=== PATIENT | male | born 1960 | race Caucasian/White ===

== ENCOUNTER 2023-10-24 20:28 | Emergency (ER) | payer OTHER, SELFPAY ==
[2023-10-24 20:31] VITALS: BP 132/90
--- NOTE | 2023-10-24 22:10 | ED.MUSCINJ ---
HPI-Injury
General
Chief Complaint: Musculo-Skeletal Complaint
Source: patient
Exam Limitations: none
Time Seen by Provider: 10/24/23 21:51
Travel History
Have you had any contact with someone who has COVID-19?: No
Do you have any symptoms of coronavirus? Fever > 100 degrees, chills, cough, shortness of breath, sore throat, loss of taste or smell, muscle aches, or headache?: No
History of Present Illness-Injury
Initial Injury comments:
63-year-old male presents complaining of right ankle and left knee pain after he slipped going up the steps. He did not hit his head. He complains of pain and swelling to the lateral right ankle. He has been having difficulty ambulating since
then. No other complaints at this time
Past History
Past History
ED Past Medical History: Arrthythmia (Atrial fibrillation, bradydysrhythmia), GERD, Hypercholesterolemia, Psychiatric (major depression), Other (PD, PE, obesity), Other (obstructive sleep apnea) and Other (nephrolithiasis); Negative CAD
ED Past Surgical History: Cardiac (pacemaker for symptomatic bradycardia), Orthopedic (ankle surgery), Tonsilectomy and Other (GASTRIC BYPASS; herniorrhaphy)
Social History
Tobacco: Non-smoker
Alcohol: Occasional
Drug: None
Personal:
Living: with family
Employment: Disabled
Family History
Family History: Other (reviewed and Noncontributory)
Phy Exam
Physical Exam
Physical Exam:
General: Well-appearing male no acute respiratory distress
HEENT: Normocephalic atraumatic
Musculoskeletal exam: Right ankle swollen tender inferior to the distal fibula. No deformity. Good plantarflexion. Able to resist eversion and inversion. The right knee is nontender the ankle is stable to her drawer test. The left knee is
tender anteriorly with overlying abrasion with contusion.
Injury Course
Orders/Labs/Results
Orders:
Orders
10/24/23 20:33
CR Ankle - Right Min 3 Views * Urgent
Comment:
Reason For Exam: injury
CR Knee - Left 4 Or More View* Urgent
Comment:
Reason For Exam: injury
10/24/23 22:09
Ortho Boot Right- Treatment ONCE
Short or tall?: Tall
MDM/Problems Addressed
Differential Diagnosis Includes:
Left knee pain and right ankle pain after fall. Contusion vs sprain vs fracture
I have personally reviewed xrays of right ankle and left knee which are negative for acute fracture or dislocation.
ortho boot applied to right ankle due to difficulty ambulating. Recommend he follow-up with his orthopedic doctor for further evaluation.
*Critical Care Note
Total Time (30-74mins, 75-104mins- exclusive of procedures): Not Applicable
ED Attending Note
-
Portions of this chart may have been created with voice recognition software.� Occasional wrong word or��sound alike� substitutions may have occurred due to the inherent limitations of voice recognition software.
Discharge Plan
Departure
Patient Disposition: Home (Routine Discharge)
Date of Disposition: 10/24/23
Time of Disposition: 22:15
Patient with high blood pressure during this ER visit?: No
Discharge Problem:
Ankle sprain, Contusion
Instructions: Contusion (DC)
Prescriptions:
No Action
aspirin 325 mg Tablet
325 mg PO DAILY
ropinirole 2 mg Tablet
2 mg PO TID
lisinopril 10 mg Tablet
20 mg PO DAILY
Activity Restrictions/Additional Instructions:
Use boot for support when ambulating. Elevate for swelling. Use ibuprofen or Tylenol for pain. Return if worse otherwise follow-up with your orthopedic doctor
Interventions
Interventions:
*Risk Screen - Suicide Last Done: 10/24/23 20:31
*General Assessment Last Done: 10/24/23 20:31
[2023-10-24 22:38] VITALS: BP 126/96
== END 2023-10-24 22:42 | disposition home or self-care (01) ==
LOC: EMR 20:28
PROVIDERS: EMERGENCY PHYSICIAN Emergency Medicine; FAMILY PHYSICIAN Internal Medicine Geriatric Medicine
DX: S80.01XA Contusion of right knee, initial encounter (principal); S93.402A Sprain of unspecified ligament of left ankle, initial encounter; W22.8XXA Striking against or struck by other objects, initial encounter
CPT/HCPCS: 99283; 73564; 73610